=== PATIENT | male | born 1960 | race Two or more races ===

== ENCOUNTER 2017-06-16 07:03 | Day surgery (SDC) | payer BC ==
[2017-06-16] VITALS (12 sets, daily range): BP systolic 132–146; BP diastolic 87–93; PULSE 53–63; RESP 10–20; Ht 170.2 cm; Wt 78.0 kg
[~2017-06-16] VITALS: Ht 170.2 cm; Wt 78.0 kg
[~2017-06-16 07:03] MED LIST: CEFAZOLIN 2 GM/50 ML (PMX) 50 ML IVPB ONE; SOD CHLORIDE 0.9% 1,000 ML IV SCH
[2017-06-16] MEDS ORDERED: ATEN50TA PO (08:07)
[2017-06-16] MEDS ORDERED: POLYMYXIN/BACITRACIN 1L IRRIG ONE (09:18)
[2017-06-16] MEDS ORDERED: BUPIVACAINE 0.25% (MPF) 10 ML 10 ML VIAL ONE (09:18)
[2017-06-16] MEDS ORDERED: MEPERIDINE 100 MG INJ ONE (09:24)
[2017-06-16] MEDS ORDERED: CEFAZOLIN 1 GM INJ ONE (09:24)
[2017-06-16] MEDS ORDERED: LIDOCAINE 2% (SDV) 5 ML INJ ONE (09:24)
[2017-06-16] MEDS ORDERED: PROPOFOL 20 ML ONE (09:24)
[2017-06-16] MEDS ORDERED: EPHEDrine SULFATE 50 MG/5 ML SYG IV PRN (09:30)
[2017-06-16] MEDS ORDERED: MEPERIDINE 25 MG INJ IV PRN (09:30)
[2017-06-16] MEDS ORDERED: LABETALOL HCL 20MG INJ IV PRN (09:30)
[2017-06-16] MEDS ORDERED: FENTAnyl 50 MCG/ML VIAL IV PRN ×3 (09:30)
[2017-06-16] MEDS ORDERED: OXYCODONE/ACETAMINOPHEN (5/325) TAB PO PRN ×2 (09:30)
[2017-06-16] MEDS ORDERED: MIDAZOLAM 1 MG/ML 2 ML INJ IV PRN (09:30)
[2017-06-16] MEDS ORDERED: hydrALAzine 20 MG INJ IV PRN (09:30)
[2017-06-16] MEDS ORDERED: DIPHENHYDRAMINE 50 MG INJ IV PRN (09:30)
[2017-06-16] MEDS ORDERED: HYDROmorphONE (0.2 MG/ML) 10ML SYG IV PRN ×3 (09:30)
[2017-06-16] MEDS ORDERED: METOCLOPRAMIDE 10 MG INJ IV PRN (09:30)
[2017-06-16] MEDS ORDERED: ONDANSETRON 4 MG INJ IV PRN (09:30)
[2017-06-16] MEDS ORDERED: ATROPINE 1 MG/10 ML SYRINGE ONE (09:48)
[2017-06-16] MEDS ORDERED: EPHEDrine SULFATE 50 MG/5 ML SYG ONE (10:14)
[2017-06-16] MEDS ORDERED: HYDROCODONE/APAP (5/325) TAB PO ONE (10:30)
--- NOTE | 2017-06-16 10:30 | OPR ---
Date/Time of Note Date/Time of Note DATE: 06/16/17 TIME: 10:28 Operative Report Procedure Date: Jun 16, 2017 Preoperative Diagnosis left inguinal hernia Postoperative Diagnosis same Operation/Procedure Performed 1. open left inguinla hernia with medium ultrapro hernia system mesh 2. therapeutic injection of subcutaneous local anesthesia Surgeon see signature line Barge Pilot none Anesthesia Type: general Estimated Blood Loss: 0 - 10 ml's Transfusion none Specimen none Grafts/Implants none Complications none Pt Condition Post Procedure: stable Indications This is a 56-year-old male with incarcerated left inguinal hernia. He requests surgical repair. Risks alternatives benefits and percent were discussed with the patient. Patient's best understanding consents to the operation. Procedure Description Patient taken to the OR and prepped and draped in usual sterile fashion. Surgical timeout was performed. IV antibiotics were given. Left inguinal oblique incision is made with a 10 blade. Dissection cautery was carried onto the ex oblique fascia. This is open with a 15 blade. This incision extended medially inferiorly lateral superiorly with Metzenbaum scissors. Cord structures identified and encircled with a Dix drain. Large incarcerated inguinal hernia in the indirect space is identified and reduced manually. This is bolstered and secured to the distal portion of the ultrapure hernia system mesh. This is secured in place with a running 0 Prolene from the pubic tubercle along the shelving edge of the inguinal ligament. Superiorly this disc is secured to the internal ring with interrupted 3-0 Vicryl. Onlay mesh is secured in a similar fashion with a running 0 Prolene from the pubic tubercle along the shelving edge of the inguinal ligament. Superiorly to the intra-bleed this is secured with interrupted 3-0 Vicryl. Subsequent to reapproximate around the cord structures to re-create the inguinal ring with interrupted 0 Prolene. External oblique fascia was closed with running 3-0 Vicryl. Preet's fascia is closed with interrupted 3-0 Vicryl. Skin is closed using skin mana. Therapeutic subcutaneous local anesthesia was injected throughout the incision site. Dry dressings were applied. Milvia CALDWELL Jun 16, 2017 10:30
== END 2017-06-16 15:20 | disposition home or self-care (01) ==
LOC: SDS 07:03
PROVIDERS: ATTEND Surgery
DX: K40.90 Unilateral inguinal hernia, without obstruction or gangrene, not specified as recurrent (principal); I10 Essential (primary) hypertension; Z87.891 Personal history of nicotine dependence
CPT/HCPCS: 49505; C1781; J0461; J0690; J1170; J2175; J2405; J2765; Z7512; Z7610

== ENCOUNTER 2018-11-05 06:25 | Day surgery (SDC) | payer BC ==
[~2018-11-05] VITALS: Ht 170.2 cm; Wt 79.5 kg
[2018-11-05] VITALS (12 sets, daily range): BP systolic 126–166; BP diastolic 80–107; PULSE 60–90; RESP 12–20; Ht 170.2 cm; Wt 79.5 kg
[~2018-11-05 06:25] MED LIST changes: +ATEN50TA PO; -CEFAZOLIN 2 GM/50 ML (PMX) 50 ML IVPB ONE; -SOD CHLORIDE 0.9% 1,000 ML IV SCH
[2018-11-05] MEDS ORDERED: AMLO2.5T78 PO (06:57)
[2018-11-05] MEDS ORDERED: CEFAZOLIN 2 GM/50 ML (PMX) 50 ML IVPB SCH (07:00)
[2018-11-05] MEDS ORDERED: IMAT400T19 PO (07:00)
[2018-11-05] MEDS ORDERED: SOD CHLORIDE 0.9% 1,000 ML IV SCH (07:00)
[2018-11-05] MEDS ORDERED: BUPIVACAINE 0.25% (MPF) 30 ML INJ ONE (08:53)
--- NOTE | 2018-11-05 08:58 | PREAC ---
Date/Time of Note Date/Time of Note DATE: 11/05/18 TIME: 08:57 Anesthesia Eval and Record Evaluation Time Pre-Procedure Interview DATE: 11/05/18 TIME: 08:57 Age 58 Sex male NPO: 8 hrs Preoperative diagnosis L hydrocele Planned procedure L hydrocelectomy Past Medical History Past Medical History: Includes Cardio: HTN Pulm: Smoking Hx GI: Obesity Surgery & Anesthesia Issues No known issue Meds Anticoagulation: No Beta Stuart within 24 hr: No Reason Beta Stuart not given: Pt. not on B-Stuart Reported Medications Imatinib Mesylate* (Gleevec*) 400 Mg Tablet, 800 MG PO DAILY, TAB 11/05/18 Amlodipine Besylate* (Amlodipine Besylate*) 2.5 Mg Tablet, 2.5 MG PO DAILY, #30 TAB 11/05/18 Discontinued Reported Medications Atenolol* (Atenolol*) 50 Mg Tablet, 50 MG PO DAILY, #30 TAB 06/16/17 Current Medications Cefazolin Sodium/ Dextrose 50 ml @ 100 mls/hr ONCE IVPB ; Start 11/05/18 at 07:00; Stop 11/05/18 at 13:00 Sodium Chloride 1,000 ml @ 75 mls/hr [id number] IV ; Start 11/05/18 at 07:00; Stop 11/05/18 at 19:00 Meds reviewed: Yes Allergies Coded Allergies: No Known Allergies (Verified Allergy, Unknown, 06/16/17) Allergies Reviewed: Yes Labs/Studies Labs Reviewed: Reviewed by anesthesiologist Result Diagram: 11/05/18 0715 11/05/18 0715 Laboratory Tests 11/05/18 07:15 test: N/A Studies: ECG Pre-procedure Exam Last vitals Vital Signs Date Temp Pulse Resp B/P (MAP) Pulse Ox O2 O2 Flow FiO2 Time Delivery Rate 11/05/18 97.9 63 16 139/81 98 07:44 (100) Airway: Adequate mouth opening, Adequate thyromental dist Mallampati: Mallampati II Teeth: Normal Lung: Normal Heart: Normal ASA Physical Status ASA physical status: 2 Emergency: None Planned Anesthetic General/MAC: ETT Pre-operative Attestations Prior to commencing anesthesia and surgery, the patient was re-evaluated, there was verification of: *The patient's identity *The results of appropriate recent lab work and preoperative vital signs *The above evaluation not changing prior to induction *Anesthetic plan, risk benefits, alternative and complications discussed with patient/family; questions answered; patient/family understands, accepts and wishes to proceed. DANDRE REDD Nov 05, 2018 08:58
[2018-11-05] MEDS ORDERED: ONDANSETRON 4 MG INJ IV PRN (09:00)
[2018-11-05] MEDS ORDERED: LABETALOL HCL 20MG INJ IV PRN (09:00)
[2018-11-05] MEDS ORDERED: MEPERIDINE 25 MG INJ IV PRN (09:00)
[2018-11-05] MEDS ORDERED: METOCLOPRAMIDE 10 MG INJ IV PRN (09:00)
[2018-11-05] MEDS ORDERED: DIPHENHYDRAMINE 50 MG INJ IV PRN (09:00)
[2018-11-05] MEDS ORDERED: FENTAnyl 50 MCG/ML VIAL IV PRN ×3 (09:00)
[2018-11-05] MEDS ORDERED: ALBUTEROL 0.083% (NEB) 2.5 MG/3 ML AMP HHN PRN (09:00)
[2018-11-05] MEDS ORDERED: HYDROmorphONE 1 MG/5 ML IV SYRINGE IV PRN ×3 (09:00)
[2018-11-05] MEDS ORDERED: FENTAnyl 50 MCG/ML VIAL ONE ×2 (09:07→09:33)
[2018-11-05] MEDS ORDERED: SUCCINYLCHOLINE CHLORIDE 100 MG/5 ML SYG IV ONE (09:33)
[2018-11-05] MEDS ORDERED: ROCURONIUM 50 MG INJ ONE (09:33)
[2018-11-05] MEDS ORDERED: CEFAZOLIN 1 GM INJ ONE (09:33)
[2018-11-05] MEDS ORDERED: GLYCOPYRROLATE 0.4 MG INJ ONE (09:33)
[2018-11-05] MEDS ORDERED: NEOSTIGMINE 10 MG INJ ONE (09:33)
[2018-11-05] MEDS ORDERED: PROPOFOL 20 ML ONE (09:33)
[2018-11-05] MEDS ORDERED: LIDOCAINE 100 MG SYRINGE ONE (09:33)
--- NOTE | 2018-11-05 09:51 | OPR ---
Date/Time of Note Date/Time of Note DATE: 11/05/18 TIME: 09:49 Operative Report Procedure Date: Nov 05, 2018 Preoperative Diagnosis left recurrent hydrocele Postoperative Diagnosis same Operation/Procedure Performed 1. left hydrocelectomy 2. localized adjacent tissue transfer with the use of skin flaps of left scrotum 12 sq cm defect 3. therapeutic injection of subcutaneous local anesthesia Surgeon see signature line Leather Sponger none Anesthesia Type: general Estimated Blood Loss: 10 - 50 ml's Transfusion none Specimen left hydrocele sac Grafts/Implants none Complications none Pt Condition Post Procedure: stable Indications This is a 58-year-old male with recurrent left hydrocele of the testicle. He requires surgical excision. Risks alternatives benefits and percent were discussed the patient. Patient expressed understanding consents to the operation. Procedure Description Patient is taken to the OR and prepped and draped in usual sterile fashion. Surgical time was performed. IV antibiotics given. Longitudinal incision is made with a 15 blade over the left hydrocele. Dissection with cautery was taken down layer by layer. Hemostat graspers were used to grasp the hernia sac and the hernia sac is entered in a controlled fashion. The hydrocele fluid appears very clear. This is suctioned out. The hydrocele sac is then excised and sent. The remnant of the sac is then marsupialized and closed with a running 3-0 Vicryl. The fluid is then all suctioned out completely and due to tissue defect localized adjacent to his transfer with these of skin flaps were performed for a multilayer closure with interrupted 3-0 Vicryl running 4-0 Monocryl. Ther apeutic taste local anesthesia was injected at incision site. Dry dressings were applied. Milvia CALDWELL Nov 05, 2018 09:51
[2018-11-05] MEDS ORDERED: NALOXONE (0.4 MG/ML) INJ ONE (09:54)
[2018-11-05] MEDS ORDERED: HYDROCODONE/APAP (5/325) TAB PO ONE (10:00)
--- NOTE | 2018-11-05 22:17 | PAC ---
Date/Time of Note Date/Time of Note DATE: 11/05/18 TIME: 22:17 Post-Anesthesia Notes Post-Anesthesia Note Last documented vital signs Vital Signs Date Temp Pulse Resp B/P (MAP) Pulse Ox O2 O2 Flow FiO2 Time Delivery Rate 11/05/18 98.0 65 18 127/83 100 10:53 (98) 11/05/18 Room Air 10:45 11/05/18 6.0 10:05 Activity: WNL Respiratory function: WNL Cardiovascular function: WNL Mental status: Baseline Pain reasonably controlled: Yes Hydration appropriate: Yes Nausea/Vomiting absent: Yes DANDRE REDD Nov 05, 2018 22:17
== END 2018-11-05 12:29 | disposition home or self-care (01) ==
LOC: SDS 06:25
PROVIDERS: ATTEND Surgery
DX: N43.3 Hydrocele, unspecified (principal); N43.2 Other hydrocele; I10 Essential (primary) hypertension; E66.9 Obesity, unspecified; Z68.27 Body mass index [BMI] 27.0-27.9, adult
CPT/HCPCS: 55040; 80053; 85025; 85610; 85730; J0690; J2001; J2175; J2310; J2405; J2710; J3010; Z7512; Z7610; 88302